=== PATIENT | male | born 1970 | race Caucasian/White ===

== ENCOUNTER → 2024-06-22 | Outpatient (CLI) | payer OTHER ==
--- NOTE | 2024-06-22 12:34 | HMCIMG ---
CT HEART SAVER PROMOTIONAL HISTORY: Calcium scoring COMPARISON: None TECHNIQUE: Computed tomography of the heart was performed with ECG gating and suspended respiration. Postprocessing was performed on a computer workstation to obtain diastolic phase images, determine calcium score and provide a quantitative assessment of extent of disease. This CT included only the heart. HeartSaver score is 62.90. Please see cardiac calcium score report. The available CT chest images show no acute finding. CT was performed with one or more following dose reduction techniques: automated exposure control, adjustment of the mA and kv according to patient's size, or use of a iterative reconstruction technique.
== END | disposition home or self-care (01) ==
LOC: RAH 11:14
PROVIDERS: ATTEND Internal Medicine
DX: Z13.6 Encounter for screening for cardiovascular disorders (principal)
CPT/HCPCS: 75571